=== PATIENT | female | born 1980 | race Two or more races ===

== ENCOUNTER 2023-10-13 09:15 | Observation (INO) | payer SELFPAY ==
[2023-10-13 09:23] VITALS: BMI 33.3
[2023-10-13] MEDS: SODIUM CHLORIDE 0.9% 500 ML INFUS.BAG IV ONE (10:43)
[2023-10-13] MEDS: ACETAMINOPHEN 1000 MG/100 ML BAG IVPB ONE ×2 (10:43→18:26)
[2023-10-13 10:56] LABS: BASO % 0.8 % (0-2.0); EOS % 1.9 % (0-4.5); HEMATOCRIT 40.5 % (32.4-45.2); HEMOGLOBIN 13.8 GM/dL (10.7-15.3); LYMPH % 12.4 % (8-40); MCH 29.3 pg (25.7-33.7); MCHC 34.1 g/dl (32.0-36.0); MEAN CELL VOLUME 86.1 fl (80-96); MEAN PLT VOLUME 9.9 fl (7.5-11.1); MONO % 6.1 % (3.8-10.2); NEUT % 78.8 % (42.8-82.8); PLATELET COUNT 313 10^3/uL (134-434); RBC 4.71 M/mm3 (3.60-5.2); RDW 14.2 % (11.6-15.6); WHITE BLOOD COUNT 12.7 K/mm3 (4.0-10.0)
[2023-10-13 11:01] LABS: EPI CELLS 14 /uL (0-25.1); HYALINE CASTS 0 /uL (0-3.1); URINE APPEARANCE CLEAR; URINE BACTERIA 154 /uL (0-1359); URINE BILIRUBIN NEGATIVE (NEGATIVE); URINE COLOR YELLOW; URINE GLUCOSE (UA) NEGATIVE (NEGATIVE); URINE KETONE 3+ (NEGATIVE); URINE LEUK ESTERASE NEGATIVE (NEGATIVE); URINE NITRITE NEGATIVE (NEGATIVE); URINE PROTEIN TRACE (NEGATIVE); URINE RBC 89 /uL (0-23.9); URINE WBC 11 /uL (0-25.8)
[2023-10-13 11:06] LABS: INR 1.08 (0.83-1.09); PROTHROMBIN TIME (PATIENT) 12.5 SEC (9.7-13.0)
[2023-10-13 11:19] LABS: POTASSIUM 4.5 mmol/L (3.5-5.1)
[2023-10-13 11:21] LABS: ACTIVATED PTT 28.6 SECONDS (25.2-36.5); CALCIUM 9.1 mg/dL (8.5-10.1)
[2023-10-13 11:25] LABS: CREATININE 0.4 mg/dL (0.55-1.3)
[2023-10-13 11:26] LABS: BILIRUBIN,TOTAL 0.5 mg/dL (0.2-1); TOT PROT 7.2 g/dl (6.4-8.2)
[2023-10-13] MEDS ORDERED: CEFTRIAXONE 1 GM/50 ML BAG ONE (17:46)
[2023-10-13] MEDS: CEFTRIAXONE 1,000 MG in DEXTROSE 5%-WATER - 50 ML IVPB ONE (17:52)
[2023-10-13] MEDS ORDERED: ACETAMINOPHEN INJECTION 100 ML IVPB ONE (17:58)
[2023-10-13] MEDS ORDERED: ACETAMINOPHEN 1000 MG/100 ML BAG IVPB PRN (18:59)
[2023-10-14] MEDS: DEXTROSE 5%-NORMAL SALINE 1,000 ML IV SCH (01:58)
[2023-10-14 09:07] LABS: MCH 28.5 pg (25.7-33.7); MCHC 33.2 g/dl (32.0-36.0); MEAN CELL VOLUME 85.8 fl (80-96); MEAN PLT VOLUME 9.8 fl (7.5-11.1); PLATELET COUNT 317 10^3/uL (134-434); RBC 4.54 M/mm3 (3.60-5.2); RDW 14.2 % (11.6-15.6); WHITE BLOOD COUNT 10.4 K/mm3 (4.0-10.0)
[2023-10-14 09:19] LABS: POTASSIUM 3.8 mmol/L (3.5-5.1)
[2023-10-14 09:21] LABS: CALCIUM 8.5 mg/dL (8.5-10.1)
[2023-10-14 09:22] LABS: MAGNESIUM 1.8 mg/dL (1.8-2.4)
[2023-10-14 09:25] LABS: PHOSPHOROUS 3.2 mg/dL (2.5-4.9)
[2023-10-14 09:38] LABS: BLOOD UREA NITROGEN 5.2 mg/dL (7-18); CREATININE 0.4 mg/dL (0.55-1.3)
[2023-10-14 09:47] LABS: SYPHILIS W/ RPR CONF NON-REACTIVE (NONREACTIVE)
[2023-10-14 13:30] VITALS: BP 114/71; PULSE 69; RESP 18; TEMP 98.6
[2023-10-14] MEDS: CEFTRIAXONE 1 GM in DEXTROSE 5%-WATER - 50 ML IVPB SCH (17:17)
== END 2023-10-14 16:45 | disposition home or self-care (01) ==
LOC: JER 09:15 → JERBED 19:07 → J5S 21:16
PROVIDERS: ADMIT Internal Medicine; ATTEND Internal Medicine
PROC: 3E033NZ Introduction of Analgesics, Hypnotics, Sedatives into Peripheral Vein, Percutaneous Approach (ICD-10-PCS; principal; 2023-10-13)
PROC: 3E03329 Introduction of Other Anti-infective into Peripheral Vein, Percutaneous Approach (ICD-10-PCS; 2023-10-13)
PROC: 3E033GC Introduction of Other Therapeutic Substance into Peripheral Vein, Percutaneous Approach (ICD-10-PCS; 2023-10-13)
PROC: 3E0337Z Introduction of Electrolytic and Water Balance Substance into Peripheral Vein, Percutaneous Approach (ICD-10-PCS; 2023-10-13)
DX: Z34.90 Encounter for supervision of normal pregnancy, unspecified, unspecified trimester (principal); R10.9 Unspecified abdominal pain; L80 Vitiligo
CPT/HCPCS: 36415; 72195-TC; 74181-TC; 76817-TC; 76856-TC; 80048; 80053; 81003; 83735; 84100; 84443; 84702; 84703; 85025; 85027; 85610; 85730; 86705; 86708; 86780; 86803; 86850; 86900; 86901; 87086; 87340; 87491; 87517; 87529; 87591; 87661; 93005; 93010; 99285-25; G0378; J0131

== ENCOUNTER 2024-05-06 09:00 | Inpatient (IN) | payer OTHER ==
[2024-05-06 09:27] LABS: BASO % 0.7 % (0-2.0); EOS % 2.2 % (0-4.5); HEMATOCRIT 38.9 % (32.4-45.2); HEMOGLOBIN 13.3 GM/dL (10.7-15.3); LYMPH % 13.5 % (8-40); MCHC 34.2 g/dl (32.0-36.0); MEAN CELL VOLUME 87.7 fl (80-96); MEAN PLT VOLUME 9.4 fl (7.5-11.1); MONO % 6.5 % (3.8-10.2); NEUT % 77.1 % (42.8-82.8); PLATELET COUNT 315 10^3/uL (134-434); RBC 4.43 M/mm3 (3.60-5.2); RDW 14.2 % (11.6-15.6); WHITE BLOOD COUNT 10.7 K/mm3 (4.0-10.0)
[2024-05-06 09:35] LABS: INR 0.9 (0.83-1.09); PROTHROMBIN TIME (PATIENT) 10.4 SEC (9.7-13.0)
[2024-05-06 09:38] LABS: ACTIVATED PTT 28.7 SECONDS (25.2-36.5)
[2024-05-06 09:47] LABS: CHLORIDE 106 mmol/L (98-107); POTASSIUM 3.7 mmol/L (3.5-5.1); SODIUM 135 mmol/L (136-145)
[2024-05-06 09:48] LABS: ANION GAP 7 mmol/L (4-13); BLOOD UREA NITROGEN 6.3 mg/dL (7-18); CALCIUM 9.4 mg/dL (8.5-10.1); CO2 23 mmol/L (21-32); GLUCOSE,RANDOM 83 mg/dL (74-106)
[2024-05-06 09:51] LABS: CREATININE 0.5 mg/dL (0.55-1.3)
[2024-05-06 11:04] VITALS: BMI 35.9
[2024-05-06 12:33] LABS: HIV INTERPRETATION NEGATIVE (NEGATIVE)
[2024-05-06] MEDS: DINOPROSTONE 10 MG VAGINAL SUPPOSITORY VG ONE (13:30)
[2024-05-06] MEDS: ELECTROLYTE-148 SOLN 1,000 ML IV SCH (14:00)
[2024-05-07] MEDS: OXYTOCIN 30 UNITS in 0.9% NS 30 UNIT/500 ML INFUS.BAG IVPB SCH (07:50)
[2024-05-07] MEDS ORDERED: BUTORPHANOL TARTRATE 1 MG/ML VIAL IVPB ONE (12:22)
[2024-05-07] MEDS ORDERED: BUTORPHANOL TARTRATE 2 MG/ML VIAL ONE (12:33)
[2024-05-07] MEDS: BUTORPHANOL TARTRATE 2 MG/ML VIAL IVPB ONE (12:44)
[2024-05-07] MEDS ORDERED: FENTANYL/BUPIVACAINE/NS/PF - PCEA - 50 ML DISP.SYRIN EP ONE (14:43)
[2024-05-07] MEDS: FENTANYL/BUPIVACAINE/NS/PF - PCEA - 50 ML DISP.SYRIN EP SCH (15:05)
[2024-05-07] MEDS ORDERED: OXYTOCIN 20 UNITS in 0.9% NS 20 UNIT/1,000 ML INFUS.BAG IV ONE (15:33)
[2024-05-07] MEDS ORDERED: NALOXONE HCL 0.4 MG/ML VIAL IVPUSH PRN (16:05)
[2024-05-07] MEDS ORDERED: LIDOCAINE HCL 1% PRESERVATIVE FREE - 30ML VIAL ONE (17:41)
[2024-05-07] MEDS: OXYTOCIN 20 UNITS in 0.9% NS 20 UNIT/1,000 ML INFUS.BAG IV SCH (19:52)
[2024-05-07] MEDS ORDERED: MISOPROSTOL 200 MCG TABLET ONE (19:59)
[2024-05-07 20:18] LABS: CORD BASE EXCESS -6.2 mmol/L (0-2); CORD HCO3 19.5 mmHg (20-29); CORD PCO2 39.5 mmHg (30-78); CORD pH 7.312 (7.14-7.44)
[2024-05-07 20:19] LABS: CORD BASE EXCESS -6.3 mmol/L (0-2); CORD HCO3 21.8 mmHg (20-29); CORD pH 7.233 (7.14-7.44)
[2024-05-07] MEDS ORDERED: BISACODYL 10 MG SUPP.RECT RC PRN (20:42)
[2024-05-07] MEDS ORDERED: WITCH HAZEL 50% (TUCKS) 40 PAD/JAR PAD TP PRN (20:42)
[2024-05-07] MEDS ORDERED: BENZOCAINE 28 GM HEMORRHOIDAL OINTMENT TP PRN (20:42)
[2024-05-07] MEDS: ACETAMINOPHEN 325 MG TABLET (FP) PO PRN (20:58)
[2024-05-07 21:17] VITALS: RESP 18
[2024-05-07] MEDS: BENZOCAINE 20% 57 GM BOTTLE TP PRN (22:36)
[2024-05-07] MEDS: IBUPROFEN 600 MG TABLET (FP) PO PRN (22:37)
[2024-05-08] MEDS: METHYLERGONOVINE MALEATE 0.2 MG/1 ML AMP IM PRN (03:01)
[2024-05-08 07:51] LABS: BASO % 0.4 % (0-2.0); EOS % 0.6 % (0-4.5); HEMATOCRIT 33.3 % (32.4-45.2); HEMOGLOBIN 10.9 GM/dL (10.7-15.3); MCH 29.3 pg (25.7-33.7); MCHC 32.8 g/dl (32.0-36.0); MEAN CELL VOLUME 89.3 fl (80-96); MEAN PLT VOLUME 9.9 fl (7.5-11.1); MONO % 6.8 % (3.8-10.2); NEUT % 84.2 % (42.8-82.8); PLATELET COUNT 251 10^3/uL (134-434); RBC 3.73 M/mm3 (3.60-5.2); RDW 14.1 % (11.6-15.6); WHITE BLOOD COUNT 18.4 K/mm3 (4.0-10.0)
[2024-05-08] MEDS: DIPHTH,PERTUSS(ACELL),TET 0.5 ML DISP.SYRIN IM ONE (10:08)
[2024-05-08] MEDS ORDERED: SENNOSIDES/DOCUSATE COMBO (SENNA PLUS) TABLET (UD) PO PRN (22:00)
[2024-05-09 08:53] VITALS: BP 123/75; PULSE 75; TEMP 98.1
== END 2024-05-09 14:40 | disposition home or self-care (01) | DRG 560 ==
LOC: JLDR 09:00 → J3W 05-07 22:03
PROVIDERS: ADMIT Obstetrics & Gynecology; ATTEND Obstetrics & Gynecology
PROC: 3E0P7VZ Introduction of Hormone into Female Reproductive, Via Natural or Artificial Opening (ICD-10-PCS; 2024-05-06)
PROC: 10D07Z6 Extraction of Products of Conception, Vacuum, Via Natural or Artificial Opening (ICD-10-PCS; principal; 2024-05-07)
PROC: 0W8NXZZ Division of Female Perineum, External Approach (ICD-10-PCS; 2024-05-07)
PROC: 0KQM0ZZ Repair Perineum Muscle, Open Approach (ICD-10-PCS; 2024-05-07)
DX: O48.0 Post-term pregnancy (principal); O70.1 Second degree perineal laceration during delivery; Z3A.40 40 weeks gestation of pregnancy; Z37.0 Single live birth
CPT/HCPCS: 36415; 36600; 59409; 80048; 82803; 85025; 85610; 85730; 86780; 86850; 86900; 86901; 87389; 90715